=== PATIENT | female | born 1980 | race Caucasian/White ===

== ENCOUNTER → 2017-12-30 | Outpatient (REF) | payer BC | LOC: ZZSENDIN 09:38 | PROVIDERS: ATTEND Physician Assistant | DX: N39.0 Urinary tract infection, site not specified (principal); Z33.1 Pregnant state, incidental; B96.89 Other specified bacterial agents as the cause of diseases classified elsewhere | CPT/HCPCS: 84702; 87077; 87088; 87186 ==

== ENCOUNTER 2018-03-17 18:23 | Emergency (ER) | payer BC ==
[2018-03-17] MEDS ORDERED: PREN-127 PO (18:32)
[2018-03-17] MEDS ORDERED: FOLI0.4T56 PO (19:06)
--- NOTE | 2018-03-17 19:12 | ER Report ---
History and Physical Time Seen By MD: 19:13 Hx. of Stated Complaint: 15 WKS - LOST ONE TWIN ON FRIDAY AND "WANTS TO MAKE SURE THE OTHER IS OKAY." NO SYMPTOMS, BUT ANXIETY. HPI/ROS CHIEF COMPLAINT: concern about HISTORY OF PRESENT ILLNESS: This is a 37 year old female. She was told last that one of her twins had intrauterine demise. She is at 15 weeks now. No symptoms at this time. She has not felt much movement today and is uneasy. She denies bleeding, leakage of fluid or contractions. She has no fevers or chills. No dysuria. Constipation chronically, but no worse than normal. No nausea. No shortness of breath. Has been referred to a specialist for high risk and will be seeing them about a week. Allergies: Coded Allergies: No Known Drug Allergies (Unverified , 03/17/18) Home Meds Reported Medications Folic Acid (FOLIC ACID) 0.4 Mg Tablet, 0.4 MG PO 03/17/18 Vits W-Ca,Fe,Fa(<1MG) ( VITAMINS) 1 Each Tablet, 1 EACH PO DAILY, TAB 03/17/18 Reviewed Nurses Notes: Yes Constitutional Vital Sign - Last 24 Hours 03/17/18 03/17/18 03/17/18 03/17/18 18:30 19:00 19:03 19:04 Temp 97.9 Pulse 89 ??? 72 Resp 14 18 B/P (MAP) 130/88 140/92 (108) Pulse Ox 94 98 O2 Delivery Room Air Room Air 03/17/18 03/17/18 03/17/18 03/17/18 19:15 19:30 19:45 20:00 Pulse 80 77 82 70 B/P (MAP) 123/91 (102) 121/85 (97) Pulse Ox 97 98 97 97 03/17/18 03/17/18 03/17/18 03/17/18 20:15 20:30 20:45 21:00 Pulse 72 65 66 ??? Pulse Ox 98 96 96 03/17/18 03/17/18 03/17/18 03/17/18 21:02 21:15 21:30 21:45 Pulse 85 70 74 B/P (MAP) 123/80 (94) 117/76 (90) Pulse Ox 96 96 97 03/17/18 22:00 Pulse 76 B/P (MAP) 125/76 (92) Pulse Ox 95 Physical Exam General: Alert, no acute distress. GI: Abdomen is soft, non-tender. Cardiovascular: Regular rate and rhythm. Pulmonary: Lungs clear. Skin: no rashes or lesions. Medical Decision Making EKG/Imaging Imaging EXAMINATION: ULTRASOUND OB DETAILED TWINS DATE: 03/17/2018. COMPARISON: None. TECHNIQUE: Grayscale ultrasound images were obtained for the twin fetuses, placenta, and maternal pelvic organs. FINDINGS: Reported estimated date of delivery: 09/04/2018. Age by dates: 15 weeks, 4 days Number of fetuses: 2 position: Fetus A: Transverse, head to maternal left, midportion of the uterus. Fetus B: Transverse, head to maternal right, with fundal. Cervix: 5.1 cm long and closed. FETUS A: Placental location: Anterior Biometry as follows: Biparietal diameter: 3.24 mm 16 weeks, 1 day Head circumference: 11.56 mm 15 weeks, 5 days Abdominal circumference: 9.97 mm 16 weeks, 1 day Femur length: 1.99 mm 16 weeks, 0 days Average age by ultrasound: 16 weeks, 0 days Estimated weight: 140 gm weight percentile: 66th % ANATOMY Limited due to early gestational age. The imaged face, four-chamber view of the heart, stomach, urinary bladder, three-vessel cord and extremities are grossly normal. heart rate is 155 BPM. FETUS B: Placental location: Anterior/fundal. Biometry as follows: Biparietal diameter: 2.25 mm 13 weeks, 6 days Head circumference: 9.18 mm 14 weeks, 2 days Abdominal circumference: 7.28 mm 13 weeks, 6 days Femur length: 1.36 mm 14 weeks, 1 day Average age by ultrasound: 14 weeks, 0 days Estimated weight: 86 gm weight percentile: Less than 2nd % ANATOMY Limited. The imaged face and extremities are grossly normal. Maternal adnexa: Both the ovaries are visualized and normal. Endovaginal examination was not performed. IMPRESSION: Twin intrauterine gestation. Fetus A: Average ultrasound age of 16 weeks 0 days, corresponding to reported gestational age of 15 weeks 4 days. Estimated weight is in 66th %tile. Limited evaluation of anatomy due to gestational age. Fetus B: Average ultrasound age of 14 weeks 0 days, compared to estimated gestational age of 15 weeks 4 days. Estimated weight is in less than 2nd %tile. No heart movement consistent with reported demise. Dr. Bautista discussed this case with CASEY HOOKS on 03/17/2018 10:19 PM. Report Dictated By: Evans Bautista MD at 03/17/2018 10:05 PM ED Course/Re-evaluation ED Course Reassuring ultrasound of the remaining twin. No other problems noted. Discussed with the patient and she will follow-up as planned. Decision to Disposition Date: Mar 17, 2018 Decision to Disposition Time: 22:22 Depart Departure Latest Vital Signs Vital Signs Date Time Temp Pulse Resp B/P (MAP) Pulse Ox O2 Delivery O2 Flow Rate FiO2 03/17/18 22:00 76 125/76 (92) 95 03/17/18 19:03 97.9 18 Room Air Impression: Primary Impression: Twin with single intrauterine Condition: Condition Unchanged Disposition: HOME OR SELF-CARE Additional Instructions: Follow-up with [facility] as planned. No other changes at this time. Problem Qualifiers Primary Impression: Twin with single intrauterine Fetus number: fetus 2 of multiple gestation Trimester: second trimester Qualified Codes: O31.22X2 - Continuing after intrauterine of one fetus or more, second trimester, fetus 2 CASEY HOOKS MD Mar 17, 2018 19:12
[2018-03-17 22:00] VITALS: BP 125/76
--- NOTE | 2018-03-17 22:24 | RADIOLOGY IMAGING REPORT ---
FACILITY: [facility] PATIENT NAME: Aidee Cruz : 1980 MR: [id number] V: [id number] EXAM DATE: ORDERING PHYSICIAN: CASEY HOOKS TECHNOLOGIST: Location: [facility] Patient: Aidee Cruz : 1980 Visit/Account:[id number] Date of Sevice: 03/17/2018 EXAMINATION: ULTRASOUND OB DETAILED TWINS DATE: 03/17/2018. COMPARISON: None. TECHNIQUE: Grayscale ultrasound images were obtained for the twin fetuses, placenta, and maternal pel jennifer organs. FINDINGS: Reported estimated date of delivery: 09/04/2018. Age by dates: 15 weeks, 4 days Number of fetuses: 2 position: Fetus A: Transverse, head to maternal left, midportion of the uterus. Fetus B: Tra nsverse, head to maternal right, with fundal. Cervix: 5.1 cm long and closed. FETUS A: Placental location: Anterior Biometry as follows: Biparietal diameter: 3.24 mm 16 weeks, 1 day Head circumference: 11.56 mm 15 weeks, 5 days Abdominal circumference: 9.97 mm 16 weeks, 1 day Femur length: 1.99 mm 16 weeks, 0 days Average age by ultrasound: 16 weeks, 0 days Estimated weight: 140 gm weight percentile: 66th % ANATOMY Limited due to early gestational age. The imaged face, four-chamber view of the heart, stomach, urin paul bladder, three-vessel cord and extremities are grossly normal. heart rate is 155 BPM. FETUS B: Placental location: Anterior/fundal. Biometry as follows: Biparietal diameter: 2.25 mm 13 weeks, 6 days Head circumference: 9.18 mm 14 weeks, 2 days Abdominal circumference: 7.28 mm 13 weeks, 6 days Femur length: 1.36 mm 14 weeks, 1 day Average age by ultrasound: 14 weeks, 0 days Estimated weight: 86 gm weight percentile: Less than 2nd % ANATOMY Limited. The imaged face and extremities are grossly normal. Maternal adnexa: Both the ovaries are visualized and normal. Endovaginal examination was not performe d. IMPRESSION: Twin intrauterine gestation. Fetus A: Average ultrasound age of 16 weeks 0 days, corresponding to reported gestational age of 15 weeks 4 da ys. Estimated weight is in 66th %tile. Limited evaluation of anatomy due to gestational age. Fetus B: Average ultrasound age of 14 weeks 0 days, compared to estimated gestational age of 15 weeks 4 days. Estimated weight is in less than 2nd %tile. No heart movement consistent with reported f etal demise. Dr. Bautista discussed this case with CASEY HOOKS on 03/17/2018 10:19 PM. Report Dictated By: Evans Bautista MD at 03/17/2018 10:05 PM Report E-Signed By: Evans Bautista MD at 03/17/2018 10:21 PM WSN:[id number]
== END 2018-03-17 22:35 | disposition home or self-care (01) ==
LOC: ER 19:04
DX: O31.22X2 Continuing pregnancy after intrauterine death of one fetus or more, second trimester, fetus 2 (principal); Z3A.15 15 weeks gestation of pregnancy
CPT/HCPCS: 76805; 99283

== ENCOUNTER 2018-09-10 16:42 | Emergency (ER) | payer OTHER ==
[2018-09-10 17:18] LABS: PLATELET COUNT, AUTOMATED 301 K/uL (150-450)
--- NOTE | 2018-09-10 17:19 | ER Report ---
History and Physical Time Seen By MD: 17:06 Hx. of Stated Complaint: Pt. here after having vaginal in [place], with heavy bleeding. Pt. had a seizure/or passed out with LOC after delivery. Hx of multiple concussions. Pt. feels "off" this afternoon. HPI/ROS CHIEF COMPLAINT: Heavy vaginal bleeding after delivery with dizziness. HISTORY OF PRESENT ILLNESS: 38-year-old female presents to ED with lightheadedne ss and dizziness since discharge from the hospital after she delivered her son on Friday. She delivered in [facility]. With the lightheadedness and dizziness, patient states that she is worried she is going to pass out and be home all alone. Reports vaginal bleeding that has not slowed since discharge. Reports noticing two quarter sized clots and 1 golf ball sized clot sine discharge. States that she had 6 vaginal lacerations with delivery. Reports she had her vagina "packed" after delivery for the bleeding. Reports to soaking 10 depends in a 24 hour period. Reports that she just "feel off" today. Reports that she either had a seizure or syncopal episode post-delivery. Had neuro consult with CT scan that was benign. 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 She has seen a neurologist for those. REVIEW OF SYSTEMS: Const: Denies fevers, chills, night sweats. Denies decreased appetite. Reports eating drinking fluids well. HEENT: Reports mild headache that is relieved with ibuprofen and tylenol that she has been taking for pain related to vaginal tears. Respiratory: No cough, no dyspnea. Cardiovascular: No chest pain, no palpitations. Gastrointestinal: No nausea, vomiting. Reports abdominal pain related to delivery. Reports a bowel movement this morning. Genitourinary: Reports swelling to vaginal area with pain. Neuro: Patient reports that she has been stuttering and stammering. Reports that this seems to happen prior to a seizure; this happened prior to the seizure or syncopal episodes on Friday. Denies weakness especially on one side of the body versus the other. Skin: No rashes. 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 Reviewed Nurses Notes: Yes Constitutional Vital Sign - Last 24 Hours 09/10/18 09/10/18 09/10/18 09/10/18 16:48 16:48 17:00 17:12 Pulse 83 93 Resp 16 B/P (MAP) 128/87 (101) 128/87 136/88 (104) Pulse Ox 94 95 O2 Delivery Room Air 09/10/18 09/10/18 09/10/18 09/10/18 17:30 17:42 18:00 18:30 Pulse 76 B/P (MAP) 124/89 (101) 161/98 (119) 129/86 (100) Pulse Ox 93 09/10/18 09/10/18 09/10/18 09/10/18 18:45 18:50 18:55 19:00 Pulse 67 77 86 81 B/P (MAP) 124/80 (95) Pulse Ox 95 95 95 96 09/10/18 09/10/18 09/10/18 09/10/18 19:15 19:20 19:25 19:30 Pulse 80 83 70 67 Pulse Ox 96 95 95 95 09/10/18 09/10/18 09/10/18 09/10/18 19:35 19:40 19:45 19:50 Pulse 80 66 89 78 Pulse Ox 96 94 97 96 09/10/18 09/10/18 09/10/18 09/10/18 19:51 19:52 19:53 19:54 Pulse 83 81 79 81 Pulse Ox 96 96 95 96 09/10/18 09/10/18 09/10/18 09/10/18 19:55 19:56 19:57 19:58 Pulse ? Pulse Ox 97 09/10/18 09/10/18 09/10/18 09/10/18 19:59 20:00 20:01 20:02 Pulse ? 82 B/P (MAP) 121/90 (100) Pulse Ox 95 09/10/18 09/10/18 09/10/18 09/10/18 20:03 20:04 20:05 20:06 Pulse 91 83 81 ??? B/P (MAP) 129/92 (104) 127/108 (114) Pulse Ox 95 95 94 94 09/10/18 20:07 Pulse ??? Physical Exam General Appearance: The patient is alert, has no immediate need for airway protection and no current signs of toxicity. Respiratory: Chest is non tender, lungs are clear to auscultation. Cardiac: regular rate and rhythm radial and dorsalis pedis pulses +2 and equal bilaterally. Non-pitting edema noted in lower legs bilaterally. Gastrointestinal: Abdomen is soft, no masses, bowel sounds normal. Fundus firm at at umbilicus. Denies vaginal discharge when pressing on her fundus. Genitourinary: Bleeding present on depends, which she had on when admitted to ED, was light serosanguineous drainage with no clots. Lacerations with stitches noted at the 9 O'clock and 6 O'clock positions on the labia. Various vaginal stitches observed upon inspection. No active bleeding noted from lacerations. Minimal edema noted. Neuro: Stuttering noted on the letter "M" when speaking with patient. Skin: No rashes or lesions. DIFFERENTIAL DIAGNOSIS: After history and physical exam differential diagnosis was considered for retained products, anemia, infection, active bleeding from lacerations, seizures, dizziness. Medical Decision Making Data Points Result Diagram: 09/10/18 1705 09/10/18 1705 Laboratory Hematology Test 09/10/18 17:05 09/10/18 19:06 Red Blood Count 3.18 M/uL (4.17-5.56) Mean Corpuscular Volume 94.8 fL (80.0-96.0) Mean Corpuscular Hemoglobin 32.7 pg (26.0-33.0) Mean Corpuscular Hemoglobin Concent 34.6 g/dL (32.0-36.0) Red Cell Distribution Width 13.6 % (11.5-14.5) Mean Platelet Volume 7.7 fL (7.2-11.1) Neutrophils (%) (Auto) 69.9 % (39.4-72.5) Lymphocytes (%) (Auto) 19.7 % (17.6-49.6) Monocytes (%) (Auto) 7.7 % (4.1-12.4) Eosinophils (%) (Auto) 1.8 % (0.4-6.7) Basophils (%) (Auto) 0.9 % (0.3-1.4) Nucleated RBC Relative Count (auto) 0.0 /100WBC Neutrophils # (Auto) 6.0 K/uL (2.0-7.4) Lymphocytes # (Auto) 1.7 K/uL (1.3-3.6) Monocytes # (Auto) 0.7 K/uL (0.3-1.0) Eosinophils # (Auto) 0.2 K/uL (0.0-0.5) Basophils # (Auto) 0.1 K/uL (0.0-0.1) Nucleated RBC Absolute Count (auto) 0.00 K/uL Prothrombin Time 12.6 seconds (12.0-14.4) Prothromb Time International Ratio 0.94 Activated Partial Thromboplast Time 24 seconds (23-35) Sodium Level 137 mmol/L (137-145) Potassium Level 3.7 mmol/L (3.5-5.0) Chloride Level 105 mmol/L (98-107) Carbon Dioxide Level 24 mmol/L (22-31) Blood Urea Nitrogen 9 mg/dl (7-18) Creatinine 0.80 mg/dl (0.52-1.04) Glomerular Filtration Rate Calc > 60.0 Random Glucose 94 mg/dl (75-110) Calcium Level 8.7 mg/dl (8.4-10.2) Total Bilirubin < 0.1 mg/dl (0.2-1.3) Aspartate Amino Transf (AST/SGOT) 31 U/L (0-35) Alanine Aminotransferase (ALT/SGPT) 42 U/L (0-56) Alkaline Phosphatase 84 U/L (0-126) Total Protein 6.4 g/dl (6.3-8.2) Albumin 3.4 g/dl (3.5-5.0) Human Chorionic Gonadotropin, Qual Positive (NEGATIVE) Urine Color Yellow Urine Clarity Clear Urine pH 7.0 pH (4.8-9.5) Urine Specific [place] 1.003 Urine Protein Negative mg/dL (NEGATIVE) Urine Glucose (UA) Negative mg/dL (NEGATIVE) Urine Ketones Negative mg/dL (NEGATIVE) Urine Blood Large (NEGATIVE) Urine Nitrite Negative (NEGATIVE) Urine Bilirubin Negative (NEGATIVE) Urine Urobilinogen Negative mg/dL (0.2-1.9) Urine Leukocyte Esterase Large (NEGATIVE) Urine RBC 2 /HPF (0-2/HPF) Urine WBC 27 /HPF (0-5/HPF) Urine Squamous Epithelial Cells Many /LPF (</=FEW) Urine Bacteria Negative /HPF (NONE-FEW) Urine Mucus None /HPF (NONE-FEW) Chemistry Test 09/10/18 17:05 09/10/18 19:06 White Blood Count 8.5 k/uL (4.5-11.0) Red Blood Count 3.18 M/uL (4.17-5.56) Hemoglobin 10.4 g/dL (12.0-16.0) Hematocrit 30.1 % (34.0-47.0) Mean Corpuscular Volume 94.8 fL (80.0-96.0) Mean Corpuscular Hemoglobin 32.7 pg (26.0-33.0) Mean Corpuscular Hemoglobin Concent 34.6 g/dL (32.0-36.0) Red Cell Distribution Width 13.6 % (11.5-14.5) Platelet Count 301 K/uL (150-450) Mean Platelet Volume 7.7 fL (7.2-11.1) Neutrophils (%) (Auto) 69.9 % (39.4-72.5) Lymphocytes (%) (Auto) 19.7 % (17.6-49.6) Monocytes (%) (Auto) 7.7 % (4.1-12.4) Eosinophils (%) (Auto) 1.8 % (0.4-6.7) Basophils (%) (Auto) 0.9 % (0.3-1.4) Nucleated RBC Relative Count (auto) 0.0 /100WBC Neutrophils # (Auto) 6.0 K/uL (2.0-7.4) Lymphocytes # (Auto) 1.7 K/uL (1.3-3.6) Monocytes # (Auto) 0.7 K/uL (0.3-1.0) Eosinophils # (Auto) 0.2 K/uL (0.0-0.5) Basophils # (Auto) 0.1 K/uL (0.0-0.1) Nucleated RBC Absolute Count (auto) 0.00 K/uL Prothrombin Time 12.6 seconds (12.0-14.4) Prothromb Time International Ratio 0.94 Activated Partial Thromboplast Time 24 seconds (23-35) Glomerular Filtration Rate Calc > 60.0 Calcium Level 8.7 mg/dl (8.4-10.2) Total Bilirubin < 0.1 mg/dl (0.2-1.3) Aspartate Amino Transf (AST/SGOT) 31 U/L (0-35) Alanine Aminotransferase (ALT/SGPT) 42 U/L (0-56) Alkaline Phosphatase 84 U/L (0-126) Total Protein 6.4 g/dl (6.3-8.2) Albumin 3.4 g/dl (3.5-5.0) Human Chorionic Gonadotropin, Qual Positive (NEGATIVE) Urine Color Yellow Urine Clarity Clear Urine pH 7.0 pH (4.8-9.5) Urine Specific [place] 1.003 Urine Protein Negative mg/dL (NEGATIVE) Urine Glucose (UA) Negative mg/dL (NEGATIVE) Urine Ketones Negative mg/dL (NEGATIVE) Urine Blood Large (NEGATIVE) Urine Nitrite Negative (NEGATIVE) Urine Bilirubin Negative (NEGATIVE) Urine Urobilinogen Negative mg/dL (0.2-1.9) Urine Leukocyte Esterase Large (NEGATIVE) Urine RBC 2 /HPF (0-2/HPF) Urine WBC 27 /HPF (0-5/HPF) Urine Squamous Epithelial Cells Many /LPF (</=FEW) Urine Bacteria Negative /HPF (NONE-FEW) Urine Mucus None /HPF (NONE-FEW) Coagulation Test 09/10/18 17:05 Prothrombin Time 12.6 seconds Prothromb Time International Ratio 0.94 Activated Partial Thromboplast Time 24 seconds Urinalysis Test 09/10/18 19:06 Urine Color Yellow Urine Clarity Clear Urine pH 7.0 pH (4.8-9.5) Urine Specific [place] 1.003 Urine Protein Negative mg/dL (NEGATIVE) Urine Glucose (UA) Negative mg/dL (NEGATIVE) Urine Ketones Negative mg/dL (NEGATIVE) Urine Blood Large (NEGATIVE) Urine Nitrite Negative (NEGATIVE) Urine Bilirubin Negative (NEGATIVE) Urine Urobilinogen Negative mg/dL (0.2-1.9) Urine Leukocyte Esterase Large (NEGATIVE) Urine RBC 2 /HPF (0-2/HPF) Urine WBC 27 /HPF (0-5/HPF) Urine Squamous Epithelial Cells Many /LPF (</=FEW) Urine Bacteria Negative /HPF (NONE-FEW) Urine Mucus None /HPF (NONE-FEW) EKG/Imaging Imaging Transabdominal pelvic ultrasound INDICATION: Vaginal bleeding. 5 days . COMPARISON: None Available FINDINGS: Uterus measures 16.9 x 8.6 x 11.2 cm. The uterus is heterogeneous. There are 2 small hypoechoic nodules, one anterior and posterior consistent with fibroids. These measure approximately 2.5 cm and 4 cm. No other focal abnormality. Double wall endometrial stripe measures 14.2 mm and heterogeneous. Small amount of fluid/debris is within the endometrium without other focal abnormality. There is no free fluid in the cul-de-sac. Urinary bladder is empty. Pelvic vessels appear unremarkable on this examination. Right ovary measures 3.7 x 3.0 x 2.6 cm and shows normal blood flow and contains several small follicles. Left ovary measures 4.0 x 3.2 x 1.8 cm and shows normal blood flow and contains several small follicles. No adnexal masses. IMPRESSION: 1. The uterus shows a post appearance with 2 fibroids. 2. The endometrium is enlarged and heterogeneous with a small amount of debris/fluid in the endometrium without other focal abnormality. Report Dictated By: Adán Thrasher at 09/10/2018 7:34 PM Report E-Signed By: Adán Thrasher at 09/10/2018 7:38 PM ED Course/Re-evaluation ED Course Patient was admitted to exam room, history and physical obtained, differential d iagnoses considered. Patient is post- x 4 days. Reports during delivery she had a seizure like or syncopal episode after delivery. States that she had a neurology consult with CT scan with no findings. No seizures or syncopal episodes since Friday. Patient reports she has been dizzy, lightheaded, and "feeling off" since returning home. She feels like she is going to pass out but does not. She is afraid that she will pass out when she is home alone with the baby. Reports heavy bleeding with clots. Denies chest pain, shortness of breath, weakness on one side of the body. Upon exam, BP and HR WNL, radial and pedal pulses equal +2 bilaterally. No blood pressure drop with orthostatic blood pressures. IV was started with hydration. CBC, CMP, UA, and coagulation studies performed. Pelvic ultrasound done with results of: Uterus shows appearance with 2 fibroids. Endometrium is enlarged and heterogeneous with a small amount of debris/fluid in the endometrium without other focal abnormality. Physical exam performed on vagina. Lacerations with stitches noted at the 9 O'clock and 6 O'clock positions on the labia with various internal vaginal stitches noted. Serosanguineous discharge noted, no clots. No active bleeding from lacerations. Consulted with Dr. Abdullahi. History, physical, blood work, and ultrasound information discussed with Dr. Abdullahi. He recommended that she may go home due to stable blood work, vital signs, no immediate concerns on ultrasound, and no active bleeding. He recommended that she may take Cytotec to help decrease bleeding. Patient is agreeable to go home with taking one dose of Cytotec tonight and taking one home for tomorrow. Patient to follow-up with OBGYN and neurology next week. Decision to Disposition Date: Sep 10, 2018 Decision to Disposition Time: 20:34 Depart Departure Latest Vital Signs Vital Signs Date Time Temp Pulse Resp B/P (MAP) Pulse Ox O2 Delivery O2 Flow Rate FiO2 09/10/18 20:07 ??? 09/10/18 20:06 94 09/10/18 20:05 127/108 (114) 09/10/18 16:48 16 Room Air Impression: Primary Impression: bleeding Condition: Improved Disposition: HOME OR SELF-CARE Referrals: GHAZAL YEH MD (PCP) Patient Instructions: Bleeding (ED) Additional Instructions: Increase fluid intake. Get plenty of rest. Try to sleep as much as possible. Return to the ER if condition worsens. Follow up with your OB as scheduled next Friday. Take the Cytotec tonight and then in the morning. Problem Qualifiers Primary Impression: bleeding hemorrhage type: unspecified Qualified Codes: O72.1 - Other immediate hemorrhage MICHELLE CHEW Sep 10, 2018 17:19
[2018-09-10 17:24] LABS: INR 0.94
[2018-09-10] MEDS ORDERED: NS(*) 0.9% 1000 ML BAG 1,000 ML IV ONE (18:00)
--- NOTE | 2018-09-10 19:43 | RADIOLOGY IMAGING REPORT ---
FACILITY: [facility] PATIENT NAME: Aidee Cruz : 1980 MR: [id number] V: [id number] EXAM DATE: ORDERING PHYSICIAN: MICHELLE CHEW TECHNOLOGIST: [place] [facility] [place] Aidee Cruz : 1980 Visit/Account:[id number] Date of Sevice: 09/10/2018 Transabdominal pelvic ultrasound INDICATION: Vaginal bleeding. 5 days . COMPARISON: None Available FINDINGS: Uterus measures 16.9 x 8.6 x 11.2 cm. The uterus is heterogeneous. There are 2 small hypoechoic nodul es, one anterior and posterior consistent with fibroids. These measure approximately 2.5 cm and 4 cm. No other focal abnormality. Double wall endometrial stripe measures 14.2 mm and heterogeneous. Small amount of fluid/debris is wi thin the endometrium without other focal abnormality. There is no free fluid in the cul-de-sac. Urinary bladder is empty. Pelvic vessels appear unremarkable on this examination. Right ovary measures 3.7 x 3.0 x 2.6 cm and shows normal blood flow and contains several small follic les. Left ovary measures 4.0 x 3.2 x 1.8 cm and shows normal blood flow and contains several small follicl es. No adnexal masses. IMPRESSION: 1. The uterus shows a post appearance with 2 fibroids. 2. The endometrium is enlarged and heterogeneous with a small amount of debris/fluid in the endometri um without other focal abnormality. Report Dictated By: Adán Thrasher at 09/10/2018 7:34 PM Report E-Signed By: Adán Thrasher at 09/10/2018 7:38 PM WSN:[id number]
[2018-09-10 20:05] VITALS: BP 127/108
[2018-09-10] MEDS ORDERED: MISOPROSTOL 200 MCG TAB PO ONE (20:40)
== END 2018-09-10 21:10 | disposition home or self-care (01) ==
LOC: ER 17:16
DX: O72.1 Other immediate postpartum hemorrhage (principal); R51 Headache; R10.2 Pelvic and perineal pain
CPT/HCPCS: 76856; 81001; 84703; 85025; 85610; 85730; 87077; 87088; 87186; 96360; 99284; J7030; 82040; 82247; 82310; 82374; 82435; 82565; 82947; 84075; 84132; 84155; 84295; 84450; 84460; 84520

== ENCOUNTER → 2018-09-10 | Outpatient (CLI) | payer OTHER ==
[~2018-09-10] MED LIST: FOLI0.4T56 PO; PREN-127 PO
[2018-09-10 16:26] LABS: PLATELET COUNT, AUTOMATED 303 K/uL (150-450)
== END ==
LOC: LAB 16:16
PROVIDERS: ATTEND Obstetrics & Gynecology
DX: N93.9 Abnormal uterine and vaginal bleeding, unspecified (principal)
CPT/HCPCS: 36415; 85025